=== PATIENT | female | born 1995 | race African-American/Black ===

== ENCOUNTER 2017-12-25 21:17 | Emergency (ER) | payer OTHER ==
[2017-12-25 21:19] VITALS: BP 130/82; PULSE 105; RESP 18; TEMP 97.5; O2SAT 100
--- NOTE | 2017-12-25 21:33 | PD ---
HPI Chief Complaint: Edema Time Seen by Provider: 21:25 Travel History International Travel<30 days: No Contact w/Intl Traveler<30days: No Traveled to known affect area: No History of Present Illness HPI 22-year-old female complains of cystic nodule underneath of the right upper lip. Patient states that she noticed it this morning. Patient denies any pain. Patient denies any itching. Patient denies any injury to the area. PFSH Past Medical History Medical History: Denies Significant Hx Diminished Hearing: No Immunizations Current: Yes ?: Past Surgical History Surgical History: No Previous Surgery Social History Alcohol Use: No Tobacco Use: No Substance Use: No Allergies-Medications (Allergen,Severity, Reaction): Coded Allergies: No Known Allergies (Unverified , 12/25/17) Review of Systems General / Constitutional: No: Fever Eyes: No: Visual changes HENT: No: Headaches Cardiovascular: No: Chest Pain or Discomfort Respiratory: No: Shortness of Breath Gastrointestinal: No: Abdominal Pain Genitourinary: No: Dysuria Musculoskeletal: No: Pain Skin: No Rash Neurologic: No: Weakness Psychiatric: No: Depression Endocrine: No: Polydipsia Hematologic/Lymphatic: No: Easy Bruising Physical Exam Narrative GENERAL: Well-nourished, well-developed patient. SKIN: Focused skin assessment warm/dry. HEAD: Normocephalic. EYES: No scleral icterus. No injection or drainage. Patient has small cystic nodule underneath of the upper lip on the mucous membrane. No tenderness on palpation. Clear fluid noted. NECK: Supple, trachea midline. No JVD or lymphadenopathy. CARDIOVASCULAR: Regular rate and rhythm without murmurs, gallops, or rubs. RESPIRATORY: Breath sounds equal bilaterally. No accessory muscle use. GASTROINTESTINAL: Abdomen soft, non-tender, nondistended. MUSCULOSKELETAL: No cyanosis, or edema. BACK: Nontender without obvious deformity. No CVA tenderness. Data Data Last Documented VS Vital Signs Date Time Temp Pulse Resp B/P (MAP) Pulse Ox O2 Delivery O2 Flow Rate FiO2 12/25/17 21:19 97.5 105 18 130/82 (98) 100 MDM Medical Decision Making Medical Screen Exam Complete: Yes Emergency Medical Condition: Yes Differential Diagnosis Differential diagnosis including cyst, abscess. Narrative Course 22-year-old female with a cyst on mucous membrane of the upper lip. Diagnosis Primary Impression: Cyst of lip Patient Instructions: General Instructions Additional Instructions: Advised observation. Follow if increasing redness swelling pain or infection. Med/Other Pt SpecificInfo: No Meds Exist/No RX given Disposition: 01 DISCHARGE HOME Condition: Stable Issac Patten MD December 25, 2017 21:33
== END 2017-12-25 22:16 | disposition home or self-care (01) ==
LOC: NEPD 21:17
DX: K13.0 Diseases of lips (principal)
CPT/HCPCS: 99281

== ENCOUNTER 2018-01-06 00:21 | Emergency (ER) | payer OTHER ==
[2018-01-06 00:24] VITALS: BP 118/69; PULSE 92; RESP 16; TEMP 98.1; O2SAT 98
[2018-01-06 01:03] LABS: AUTOMATED NEUTROPHIL # 4.9 TH/MM3 (1.8-7.7); BASOPHIL % 0.5 % (0.0-2.0); EOSINOPHIL # 0.2 TH/MM3 (0-0.4); EOSINOPHIL % 2.2 % (0.0-4.0); HEMATOCRIT 41.5 % (35.0-46.0); HEMOGLOBIN 13.8 GM/DL (11.6-15.3); LYMPH % 37.3 % (9.0-44.0); LYMPHOCYTE # 3.4 TH/MM3 (1.0-4.8); MEAN CELL VOLUME 85.5 FL (80.0-100.0); MEAN CORPUSCULAR HEMOGLOBIN 28.4 PG (27.0-34.0); MEAN CORPUSCULAR HGB CONC 33.2 % (32.0-36.0); MEAN PLATELET VOLUME 7.8 FL (7.0-11.0); MONO % 5.1 % (0.0-8.0); MONOCYTE # 0.5 TH/MM3 (0-0.9); NEUT % 54.9 % (16.0-70.0); PLATELET COUNT 340 TH/MM3 (150-450); RED BLOOD COUNT 4.85 MIL/MM3 (4.00-5.30); RED CELL DISTRIBUTION WIDTH 16.5 % (11.6-17.2)
--- NOTE | 2018-01-06 01:17 | PD ---
HPI . Vaginal bleeding Chief Complaint: Related Problem Time Seen by Provider: 00:31 Travel History International Travel<30 days: No Contact w/Intl Traveler<30days: No Traveled to known affect area: No History of Present Illness HPI Patient is a 22-year-old female who is 8 weeks by dates she has had an ultrasound 2 weeks ago that showed an intrauterine with a heart of 144 she reports there was no blood work done at that time she was having brown discharge in her underwear at that time but it resolved now for 2 days she has been having bright red spotting post urinating on the toilet paper as well as in her. 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 She is coming in the middle the night for increasing spotting getting worse not resolving she waited 3 days to see if it would resolve but it is not denies dysuria denies frequency PFSH Past Medical History Medical History: Denies Significant Hx Diminished Hearing: No Immunizations Current: Yes ?: Past Surgical History Surgical History: No Previous Surgery Social History Alcohol Use: No Tobacco Use: No Substance Use: No Allergies-Medications (Allergen,Severity, Reaction): Coded Allergies: No Known Allergies (Unverified , 01/06/18) Review of Systems Gastrointestinal: No: Nausea, Vomiting (slight cramping) Genitourinary: Positive: Vaginal Bleeding, No: Frequency, Dysuria, Pelvic Pain , Flank Pain Physical Exam Narrative GENERAL: Nontoxic-appearing in no acute distress SKIN: Warm and dry. HEAD: Atraumatic. Normocephalic. EYES: Pupils equal and round. No scleral icterus. No injection or drainage. ENT: No nasal bleeding or discharge. Mucous membranes pink and moist. NECK: Trachea midline. No JVD. CARDIOVASCULAR: Regular rate and rhythm. RESPIRATORY: No accessory muscle use. Clear to auscultation. Breath sounds equal bilaterally. GASTROINTESTINAL: Abdomen soft, non-tender, nondistended. Hepatic and splenic margins not palpable. MUSCULOSKELETAL: Extremities without clubbing, cyanosis, or edema. No obvious deformities. NEUROLOGICAL: Awake and alert. No obvious cranial nerve deficits. Motor grossly within normal limits. Five out of 5 muscle strength in the arms and legs. Normal speech. PSYCHIATRIC: Appropriate mood and affect; insight and judgment normal. [id number] bedside ultrasound shows a heart rate of 158,,, reassuring to the patient and I measure with the M-mode and get a wave pattern and measured to be 158 heart beat heart beat per minute Data Data Last Documented VS Vital Signs Date Time Temp Pulse Resp B/P (MAP) Pulse Ox O2 Delivery O2 Flow Rate FiO2 01/06/18 00:24 98.1 92 16 118/69 (85) 98 Orders Orders Ed Urine Pregnancytest Poc (01/06/18 00:31) Urinalysis - C+S If Indicated (01/06/18 00:31) Complete Blood Count With Diff (01/06/18 00:40) Type And Screen (01/06/18 00:40) Beta Hcg (Quant/Titer) (01/06/18 00:40) Ed Discharge Order (01/06/18 02:47) Labs Laboratory Tests Test 01/06/18 00:50 White Blood Count 9.0 TH/MM3 Red Blood Count 4.85 MIL/MM3 Hemoglobin 13.8 GM/DL Hematocrit 41.5 % Mean Corpuscular Volume 85.5 FL Mean Corpuscular Hemoglobin 28.4 PG Mean Corpuscular Hemoglobin Concent 33.2 % Red Cell Distribution Width 16.5 % Platelet Count 340 TH/MM3 Mean Platelet Volume 7.8 FL Neutrophils (%) (Auto) 54.9 % Lymphocytes (%) (Auto) 37.3 % Monocytes (%) (Auto) 5.1 % Eosinophils (%) (Auto) 2.2 % Basophils (%) (Auto) 0.5 % Neutrophils # (Auto) 4.9 TH/MM3 Lymphocytes # (Auto) 3.4 TH/MM3 Monocytes # (Auto) 0.5 TH/MM3 Eosinophils # (Auto) 0.2 TH/MM3 Basophils # (Auto) 0.0 TH/MM3 CBC Comment DIFF FINAL Differential Comment Urine Color YELLOW Urine Turbidity HAZY Urine pH 5.5 Urine Specific [place] 1.038 Urine Protein TRACE mg/dL Urine Glucose (UA) NEG mg/dL Urine Ketones TRACE mg/dL Urine Occult Blood SMALL Urine Nitrite NEG Urine Bilirubin NEG Urine Urobilinogen 2.0 MG/DL Urine Leukocyte Esterase NEG Urine RBC 1 /hpf Urine WBC 2 /hpf Urine Squamous Epithelial Cells 4 /hpf Urine Bacteria RARE /hpf Urine Hyaline Casts 2 /lpf Urine Mucus MANY /lpf Microscopic Urinalysis Comment CULT NOT INDICATED Human Chorionic Gonadotropin, Quant 75580 MIU/ML MDM Medical Decision Making Medical Screen Exam Complete: Yes Emergency Medical Condition: Yes Medical Record Reviewed: Yes Differential Diagnosis Vaginal bleeding during differential diagnosis is UTI versus placenta implantation over the cervix versus external cervical vaginitis bleeding versus intrauterine separation of the placenta from the uterine lining versus early threatened Narrative Course Ultrasound done by this MD bedside shows a heart rate of 158 , reassuring to pt ..... patient's urine is pending as well as beta hCG quant level H ans H normal Diagnosis Primary Impression: Vaginal bleeding during Referrals: Bernardo Winn MD Additional Instructions: Patient to follow-up with [facility] in [place] in the next 2 days return to the ER if bleeding gets worse at this time your beta quant is normal your bedside ultrasound was normal he should refrain from having sex for 2 weeks and follow-up with her [facility] Monday Disposition: 01 DISCHARGE HOME Condition: Good Chip Rashid MD Jan 06, 2018 01:17
[2018-01-06 01:24] LABS: BACTERIA, URINE RARE /hpf; BILIRUBIN, URINE NEG (NEG); BLOOD, URINE SMALL (NEG); GLUCOSE,URINE NEG (NEG); HYALINE CAST, URINE 2 /lpf (RARE); KETONE, URINE TRACE mg/dL (NEG); MUCUS URINE MANY /lpf (OCC); NITRITE,URINE NEG (NEG); PH, URINE 5.5 (5.0-8.5); SQUAMOUS EPITHELIAL CELL URINE 4 /hpf (0-5); URINE COLOR YELLOW (YELLW/STRAW); URINE LEUKOCYTE ESTERASE NEG (NEG)
== END 2018-01-06 03:16 | disposition home or self-care (01) ==
LOC: NEPE 00:21
DX: O20.9 Hemorrhage in early pregnancy, unspecified (principal); Z3A.08 8 weeks gestation of pregnancy
CPT/HCPCS: 81001; 84702; 84703; 85025; 86850; 86900; 86901; 99283

== ENCOUNTER 2018-01-16 15:30 | Emergency (ER) | payer OTHER ==
[~2018-01-16] VITALS: Ht 167.6 cm; Wt 53.0 kg
[2018-01-16 15:45] VITALS: BP 124/56; PULSE 72; RESP 16; TEMP 98.5; O2SAT 100
[2018-01-16] MEDS ORDERED: METH-703 PO (19:14)
[2018-01-16] MEDS ORDERED: IBUP-232 PO (19:14)
== END 2018-01-16 17:36 | disposition left against medical advice (07) ==
LOC: NEPC 15:30
DX: O46.91 Antepartum hemorrhage, unspecified, first trimester (principal); Z53.21 Procedure and treatment not carried out due to patient leaving prior to being seen by health care provider
CPT/HCPCS: 99281

== ENCOUNTER 2018-01-16 17:44 | Emergency (ER) | payer OTHER ==
[~2018-01-16] VITALS: Ht 167.6 cm; Wt 51.8 kg
[2018-01-16 17:48] VITALS: PULSE 99; RESP 18; TEMP 98
[2018-01-16 18:38] VITALS: BP 117/60; PULSE 82; RESP 18; O2SAT 97
[2018-01-16] MEDS ORDERED: SODIUM CHLOR 0.9% 1000 ML INJ 1,000 ML IV ONE (18:45)
[2018-01-16 18:59] LABS: BASOPHIL % 0.5 % (0.0-2.0); EOSINOPHIL # 0.1 TH/MM3 (0-0.4); EOSINOPHIL % 1.6 % (0.0-4.0); HEMATOCRIT 39.1 % (35.0-46.0); HEMOGLOBIN 12.8 GM/DL (11.6-15.3); LYMPH % 30.7 % (9.0-44.0); LYMPHOCYTE # 2.5 TH/MM3 (1.0-4.8); MEAN CELL VOLUME 86.5 FL (80.0-100.0); MEAN CORPUSCULAR HEMOGLOBIN 28.4 PG (27.0-34.0); MEAN CORPUSCULAR HGB CONC 32.9 % (32.0-36.0); MEAN PLATELET VOLUME 7.5 FL (7.0-11.0); MONO % 7.2 % (0.0-8.0); MONOCYTE # 0.6 TH/MM3 (0-0.9); PLATELET COUNT 336 TH/MM3 (150-450); RED BLOOD COUNT 4.52 MIL/MM3 (4.00-5.30); RED CELL DISTRIBUTION WIDTH 16.8 % (11.6-17.2); WHITE BLOOD COUNT 8.3 TH/MM3 (4.0-11.0)
--- NOTE | 2018-01-16 19:03 | PD ---
HPI Chief Complaint: Bleeding Time Seen by Provider: 18:01 Travel History International Travel<30 days: No Contact w/Intl Traveler<30days: No Traveled to known affect area: No History of Present Illness HPI The patient was seen and examined in the presence of the nurse. This patient was diagnosed by her OB physician yesterday as miscarriage. She is scheduled for D&C in 2 days. She came today for cramping and bleeding. This is her first . She passed a large clotted clump of bloody tissue prior to arrival. She is not clear if there is parts involved. Symptom severity is moderate. No alleviating factors. No exacerbating factors. PFSH Past Medical History Medical History: Denies Significant Hx Diminished Hearing: No Immunizations Current: Yes Tetanus Vaccination: Unknown ?: Unknown : 1 Para: 0 Past Surgical History Surgical History: No Previous Surgery Social History Alcohol Use: No Tobacco Use: No Substance Use: No Allergies-Medications (Allergen,Severity, Reaction): Coded Allergies: banana (Verified Allergy, Unknown, 01/16/18) Review of Systems General / Constitutional: No: Fever Eyes: No: Visual changes HENT: No: Headaches Cardiovascular: No: Chest Pain or Discomfort Respiratory: No: Shortness of Breath Gastrointestinal: No: Abdominal Pain Genitourinary: Positive: Pelvic Pain, Vaginal Bleeding, No: Dysuria Musculoskeletal: No: Pain Skin: No Rash Neurologic: No: Weakness Psychiatric: No: Depression Endocrine: No: Polydipsia Hematologic/Lymphatic: No: Easy Bruising Physical Exam Narrative GENERAL: Well-nourished, well-developed patient in no apparent distress. SKIN: Focused skin assessment reveals no rash and nodules. Skin is Warm and dry. HEAD: Atraumatic. Normocephalic. EYES: Pupils equal and round. No scleral icterus. No injection or drainage. ENT: No nasal bleeding or discharge. Mucous membranes pink and moist. NECK: Trachea midline. No JVD. CARDIOVASCULAR: Regular rate and rhythm. No murmur appreciated. RESPIRATORY: No accessory muscle use. Clear to auscultation. Breath sounds equal bilaterally. GASTROINTESTINAL: Abdomen soft, non-tender, nondistended. Hepatic and splenic margins not palpable. MUSCULOSKELETAL: No obvious deformities. No clubbing. No cyanosis. No edema. NEUROLOGICAL: Awake and alert. No obvious cranial nerve deficits. Motor grossly within normal limits. Normal speech. PSYCHIATRIC: Appropriate mood and affect; insight and judgment normal. Pelvic: Speculum exam was done. There is some blood in the vault and a large amount of placenta in the vault coming through the cervix. Data Data Last Documented VS Vital Signs Date Time Temp Pulse Resp B/P (MAP) Pulse Ox O2 Delivery O2 Flow Rate FiO2 01/16/18 18:38 82 18 117/60 (79) 97 Room Air 01/16/18 17:48 98.0 Orders Orders Iv Access Insert/Monitor (01/16/18 18:43) Complete Blood Count With Diff (01/16/18 18:43) Sodium Chlor 0.9% 1000 Ml Inj (Ns 1000 M (01/16/18 18:45) Labs Laboratory Tests Test 01/16/18 18:45 White Blood Count 8.3 TH/MM3 Red Blood Count 4.52 MIL/MM3 Hemoglobin 12.8 GM/DL Hematocrit 39.1 % Mean Corpuscular Volume 86.5 FL Mean Corpuscular Hemoglobin 28.4 PG Mean Corpuscular Hemoglobin Concent 32.9 % Red Cell Distribution Width 16.8 % Platelet Count 336 TH/MM3 Mean Platelet Volume 7.5 FL Neutrophils (%) (Auto) 60.0 % Lymphocytes (%) (Auto) 30.7 % Monocytes (%) (Auto) 7.2 % Eosinophils (%) (Auto) 1.6 % Basophils (%) (Auto) 0.5 % Neutrophils # (Auto) 5.0 TH/MM3 Lymphocytes # (Auto) 2.5 TH/MM3 Monocytes # (Auto) 0.6 TH/MM3 Eosinophils # (Auto) 0.1 TH/MM3 Basophils # (Auto) 0.0 TH/MM3 CBC Comment DIFF FINAL Differential Comment MDM Medical Decision Making Medical Screen Exam Complete: Yes Emergency Medical Condition: Yes Medical Record Reviewed: Yes Differential Diagnosis Miscarriage, placental delivery, demise Narrative Course I have reviewed the patient's electronic medical record. Reviewed visit from 10 days ago IV placed. CBC is normal. I gave a liter of normal saline IV. I discussed with Dr. Fenton the OB hospitalist who came down and is assisting in evaluating the patient now Thee Joshi MD Jan 16, 2018 19:03
[2018-01-16] MEDS ORDERED: IBUP-232 PO (19:14)
[2018-01-16] MEDS ORDERED: METH-703 PO (19:14)
--- NOTE | 2018-01-16 19:14 | PD ---
Physical Exam Date Seen by Provider: Jan 16, 2018 Time Seen by Provider: 19:08 Narrative Accepted in transfer of care from Dr. Joshi Data Data Last Documented VS Vital Signs Date Time Temp Pulse Resp B/P (MAP) Pulse Ox O2 Delivery O2 Flow Rate FiO2 01/16/18 18:38 82 18 117/60 (79) 97 Room Air 01/16/18 17:48 98.0 Orders Orders Iv Access Insert/Monitor (01/16/18 18:43) Complete Blood Count With Diff (01/16/18 18:43) Sodium Chlor 0.9% 1000 Ml Inj (Ns 1000 M (01/16/18 18:45) Ceftriaxone Inj (Rocephin Inj) (01/16/18 19:15) Labs Laboratory Tests Test 01/16/18 18:45 White Blood Count 8.3 TH/MM3 Red Blood Count 4.52 MIL/MM3 Hemoglobin 12.8 GM/DL Hematocrit 39.1 % Mean Corpuscular Volume 86.5 FL Mean Corpuscular Hemoglobin 28.4 PG Mean Corpuscular Hemoglobin Concent 32.9 % Red Cell Distribution Width 16.8 % Platelet Count 336 TH/MM3 Mean Platelet Volume 7.5 FL Neutrophils (%) (Auto) 60.0 % Lymphocytes (%) (Auto) 30.7 % Monocytes (%) (Auto) 7.2 % Eosinophils (%) (Auto) 1.6 % Basophils (%) (Auto) 0.5 % Neutrophils # (Auto) 5.0 TH/MM3 Lymphocytes # (Auto) 2.5 TH/MM3 Monocytes # (Auto) 0.6 TH/MM3 Eosinophils # (Auto) 0.1 TH/MM3 Basophils # (Auto) 0.0 TH/MM3 CBC Comment DIFF FINAL Differential Comment MDM Medical Record Reviewed: Yes Supervised Visit with ANAHI: No Interpretation(s) CBC & BMP Diagram 01/16/18 18:45 Vital Signs Date Time Temp Pulse Resp B/P (MAP) Pulse Ox O2 Delivery O2 Flow Rate FiO2 01/16/18 18:38 82 18 117/60 (79) 97 Room Air 01/16/18 17:48 98.0 99 18 Differential Diagnosis Accepted in transfer of care from Dr. Joshi; please refer to his dictation Narrative Course Accepted in transfer of care from Dr. Joshi; Dr Fenton OB-ED MD at bedside--has removed retained residual placenta w/o difficulty recommends prescription for Methergine 0.2 mg every 4 hours 48 hours, ibuprofen prescription, as well as, 1 dose of Rocephin IV now in the emergency department; no recommendation for first dose of Methergine in the emergency department. Patient will be observed for 1 hour. Patient is otherwise stable and recommended for discharge to home [facility] with follow-up 1 day with her EVENT MANAGER in [place] tomorrow. Patient is aware of discharge planning as provided by Dr. Fenton as well as myself; her questions have been answered to her to her satisfaction. Blood type (B+). Diagnosis Primary Impression: Complete miscarriage Referrals: Compressor Service Technician 1 day Patient Instructions: General Instructions Med/Other Pt SpecificInfo: Prescription(s) given Scripts Ibuprofen (Ibuprofen) 600 Mg Tab 600 MG PO Q6H Y for PAIN, #12 TAB 0 Refills Prov: Gracie Alfaro MD 01/16/18 Methylergonovine (Methergine) 0.2 Mg Tab 0.2 MG PO Q4HR for Prevents Bleeding for 2 Days, TAB 0 Refills Prov: Gracie Alfaro MD 01/16/18 Disposition: 01 DISCHARGE HOME Condition: Stable Gracie Alfaro MD Jan 16, 2018 19:14
[2018-01-16] MEDS ORDERED: cefTRIAXone INJ 1,000 MG in SODIUM CHLORIDE 0.9% INJ 100 ML IV ONE (19:15)
--- NOTE | 2018-01-16 19:22 | PD.CONS ---
History & Physical H&P Obstetric consultation Patient is a 22-year-old black female at 8 weeks gestation approximately who is currently in the process of miscarrying, patient was planned have a D&C 2 days are now in [place] for incomplete AB by her private doctor there. Patient states she has been bleeding for 2 weeks but is always had a heartbeat in her 8 week size embryo until several days ago she came in and there was no heartbeat and was set up for the D&C however now she started bleeding heavily and is presented here Exam--on visualizing the vagina with speculum there is a large mass of products of conception sitting at the cervical os and a ring forceps was used to grasp this tissue and tease it out the vagina and was sent to pathology. The saclike structure also was pulled through the cervix and sent as well. Cervix then closed and bleeding was minimal , bimanual exam reveals a cervix that is closed , uterus that is small in the pelvis anterior to mid position with no adnexal masses no significant pain Impression-incomplete spontaneous now resolved, I doubt she will have significant bleeding at this point. Plan-patient will receive prescriptions for Motrin for cramps and Methergine 0.2 mg every 4 hours for 48 hours to help decrease bleeding, she received 1 gram of Rocephin IV and continue the IV fluids and monitor for 1 more hour prior to discharge, she is to notify her RODENT EXTERMINATOR doctor in [place] of what occurred today and that she does not need a D&C obviously at this point. She is to follow-up with that physician for future gynecologic needs including control Edinson Fenton II, MD Jan 16, 2018 19:22
[2018-01-16 20:35] VITALS: BP 117/67; PULSE 80; RESP 14; O2SAT 97
== END 2018-01-16 21:05 | disposition home or self-care (01) ==
LOC: NEPC 17:44
DX: O03.9 Complete or unspecified spontaneous abortion without complication (principal)
CPT/HCPCS: 85025; 86850; 86900; 86901; 88305; 96361; 96365; 99284; J0696; J7030